=== PATIENT | female | born 1985 | race Caucasian/White ===

== ENCOUNTER 2017-03-23 05:20 | Emergency (ER) | payer BC, OTHER ==
[~2017-03-23] VITALS: Ht 160 cm; Wt 65.8 kg
[~2017-03-23 05:20] MED LIST: AMBIEN5 MG ORAL; AUGMENTIN 875-1 EACH PO; IBUPROFEN600 MG PO; NKM; NORCO 5-325 TA1 EACH ORAL
[2017-03-23 05:35] VITALS: BP 125/75
[2017-03-23] MEDS ORDERED: AMBIEN5 MG ORAL ×2 (05:53→05:54)
[2017-03-23 06:35] VITALS: BP 120/71
--- NOTE | 2017-03-23 06:41 | Emergency Room Report ---
History of Present Illness General Chief Complaint: Behavioral Complaint Source: Patient Present Illness HPI Patient 32-year-old female presented after increased difficulty sleeping. Patient reported having gradual onset of symptoms in the past 3 days. Patient states that she has been having increased anxiety as well as difficulty with palpitations. Patient stated that she had prior history of panic attacks. She had been recently taking caffeine as well as Diet Coke. Patient said that she previously been given Ambien with improvement. Allergies: Coded Allergies: No Known Allergies (Unverified , 09/30/12) Patient History Past Medical History: see triage record Last Menstrual Period: March Now: No : 2 Reviewed Nursing Documentation: PMH: Agreed, PSxH: Agreed Review of Systems All Other Systems: negative except mentioned in HPI Physical Exam Vital Signs Date Time Temp Pulse Resp B/P Pulse Ox O2 Delivery O2 Flow Rate FiO2 03/23/17 05:31 98.4 100 18 125/75 96 Room Air Sp02 EP Interpretation: reviewed, normal General Appearance: normal inspection, well appearing, no apparent distress, alert, GCS 15 Head: atraumatic ENT: normal ENT inspection, hearing grossly normal, normal voice Neck: normal inspection, full range of motion, supple, no bony tend Respiratory: normal inspection, lungs clear, normal breath sounds, no respiratory distress, no retraction, no wheezing Cardiovascular #1: regular rate, rhythm, no edema Gastrointestinal: normal inspection, normal bowel sounds, non tender, soft, no guarding, no hernia Genitourinary: no CVA tenderness Musculoskeletal: normal inspection, back normal, normal range of motion Neurologic: normal inspection, alert, oriented x3, responsive, 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 Differential diagnosis included was not limited to caffeine overdose, bipolar, anxiety, arrhythmia among others. The EKG was ordered of patient's history of palpitations. EKG interpreted by me showed normal sinus rhythm with a rate of [address]-T wave changes. The patient was given prescription for Ambien 5 mg. The patient is advised to follow up with primary care doctor. Patient is advised to return if any worsening condition or if any changes in status that are concerning. EKG Diagnostic Results Rate: normal Rhythm: NSR ST Segments: no acute changes Last Vital Signs Date Time Temp Pulse Resp B/P Pulse Ox O2 Delivery O2 Flow Rate FiO2 03/23/17 05:31 98.4 100 18 125/75 96 Room Air Status: unchanged Disposition: HOME, SELF-CARE Condition: Stable Scripts Zolpidem Tartrate* (AMBIEN*) 5 Mg Tablet 5 MG ORAL BEDTIME Y for Insomnia, #7 TAB Prov: Mendez El 03/23/17 Referrals: NOT CHOSEN IPA/MD,REFERRING (PCP) Patient Instructions: Panic Attacks Mendez El Mar 23, 2017 06:41
== END 2017-03-23 06:35 | disposition home or self-care (01) ==
LOC: EMR 06:31
DX: F51.05 Insomnia due to other mental disorder (principal); F41.9 Anxiety disorder, unspecified; R00.2 Palpitations
CPT/HCPCS: 81025; 93005; 99283